=== PATIENT | male | born 1935 | race Caucasian/White ===

== ENCOUNTER → 2018-11-17 08:31 | Outpatient (BNVA) | payer MEDICARE, OTHER, SELFPAY | PROVIDERS: PCP Family Medicine; Visit Provider Nurse Practitioner Family | DX: I49.5 Sick sinus syndrome (principal); I48.0 Paroxysmal atrial fibrillation; I42.0 Dilated cardiomyopathy; I77.810 Thoracic aortic ectasia; Z45.02 Encounter for adjustment and management of automatic implantable cardiac defibrillator | CPT/HCPCS: 93283; 99203; 99214 ==

== ENCOUNTER → 2020-11-22 13:56 | Outpatient (BNVA) | payer MEDICARE, OTHER, SELFPAY | PROVIDERS: PCP Family Medicine; Referring Provider Family Medicine; Visit Provider Physician Assistant | DX: I49.5 Sick sinus syndrome (principal); I48.0 Paroxysmal atrial fibrillation; Z45.018 Encounter for adjustment and management of other part of cardiac pacemaker | CPT/HCPCS: 93280; 99212 ==

== ENCOUNTER → 2021-11-21 13:16 | Outpatient (BNVA) | payer MEDICARE, OTHER, SELFPAY | PROVIDERS: PCP Family Medicine; Referring Provider Family Medicine; Visit Provider Physician Assistant | DX: I42.0 Dilated cardiomyopathy (principal); Z95.0 Presence of cardiac pacemaker | CPT/HCPCS: 93282 ==

== ENCOUNTER → 2023-12-29 13:29 | Outpatient (BNVA) | payer MEDICARE, OTHER, SELFPAY | PROVIDERS: PCP Family Medicine; Referring Provider Family Medicine; Visit Provider Urology | DX: N47.1 Phimosis (principal); R32 Unspecified urinary incontinence | CPT/HCPCS: 99215 ==

== ENCOUNTER 2024-03-04 08:08 | Day surgery (SDC) | payer MEDICARE, OTHER, SELFPAY ==
[2024-03-04 08:25] VITALS: BP 109/58; PULSE 56; RESP 17; TEMP 36.1; O2SAT 95
--- NOTE | 2024-03-04 08:27 | ANES.PREOP_ITS ---
General Info Date of Service Date Performed: 03/04/24 Height: 6 ft Weight: 87.997 kg Body Mass Index (BMI): 26.3 Surgical Procedure: Operation Date: 03/04/24 09:40 Proposed Procedure Side Surgeon p Circumcision Chintan Garza MD Meds Allergies and Home Medications Allergies Allergy/AdvReac Type Severity Reaction Status Date / Time sulfamethoxazole (From Allergy Severe Other (See Verified 03/04/24 08:46 Sulfamethoxazole-Trimethoprim) Comment) trimethoprim (From Allergy Severe Other (See Verified 03/04/24 08:46 Sulfamethoxazole-Trimethoprim) Comment) ramipril Allergy Unknown Verified 03/04/24 08:46 ropinirole Allergy HALLUCINATI Verified 03/04/24 08:46 ONS sertraline Allergy Unknown Verified 03/04/24 08:46 zolpidem (From Ambien) Allergy Unknown Verified 03/04/24 08:46 Home Medication ?Medication ?Instructions ?Recorded acetaminophen 325 mg capsule 325 mg PO Q6H PRN 11/17/18 (Tylenol) albuterol sulfate 90 mcg/actuation 2 puff inhalation BID PRN 11/17/18 aerosol inhaler (ProAir HFA) calcium carbonate 600 mg-vitamin 1 cap PO DAILY 11/17/18 D3 10 mcg (400 unit) capsule (Calcium 600 with Vitamin D3) dorzolamide 2 % eye drops 1 drp ophthalmic (eye) BID 11/17/18 finasteride 5 mg tablet (Proscar) 5 mg PO DAILY 11/17/18 folic acid 800 mcg tablet 0.8 mg PO DAILY 11/17/18 ibuprofen 800 mg tablet 800 mg PO BID 11/17/18 latanoprost 0.005 % eye drops 1 drp ophthalmic (eye) QPM 11/17/18 omeprazole 20 mg capsule,delayed 20 mg PO DAILY 11/17/18 release vitamin B complex (B 1 tab PO DAILY 11/17/18 Complex-Vitamin B12 tablet) metoprolol succinate 25 mg 12.5 mg PO DAILY 11/22/20 tablet,extended release 24 hr ascorbic acid (vitamin C) 500 mg 500 mg PO DAILY 12/11/23 tablet cyanocobalamin (vitamin B-12) 5,000 mcg PO DAILY 12/11/23 5,000 mcg capsule mirtazapine 15 mg tablet (Remeron) 15 mg PO DAILY 12/11/23 potassium chloride 20 mEq 20 meq PO DAILY 12/11/23 tablet,extended release torsemide 20 mg tablet 20 mg PO DAILY 12/11/23 polyethylene glycol 3350 17 17 g PO PRN 12/29/23 gram/dose oral powder (Miralax) amiodarone 100 mg tablet 100 mg PO HS 01/22/24 ferrous sulfate 325 mg (65 mg 325 mg PO DAILY 01/22/24 iron) tablet Current Visit Medications: Current Medications Generic Name Dose Route Start Last Admin Trade Name Suhas PRN Reason Stop Dose Admin Ringer's Solution 1,000 mls @ 80 mls/hr 03/04/24 06:00 IV 03/04/24 23:59 INFUSION LOLA Cefazolin Sodium/Dextrose 2 gm in 50 mls @ 100 mls/hr 03/04/24 06:00 Ancef Duplex IVPB 03/04/24 23:59 PREOP LOLA IV Miscellaneous Supplies 1 each 03/04/24 06:00 Iv Access IV 03/04/24 23:59 DIRECTED LOLA Sodium Chloride 0 ml 03/04/24 06:00 Normal Saline Flush 10 Ml Syr IV 03/04/24 23:59 PRN PRN Sodium Chloride 0 ml 03/04/24 06:00 Normal Saline 10 Ml Vial IJ 03/04/24 23:59 DIRECTED PRN Sterile Water 0 ml 03/04/24 06:00 Water,Injection,Sterile 10 Ml Vial IJ 03/04/24 23:59 DIRECTED PRN PFSH Active Problems Active Problems: Problem Status Onset Code Phimosis Acute N47.1 Pacemaker Acute Z95.0 Ascending aorta dilatation Chronic I77.810 Dilated cardiomyopathy Chronic I42.0 Paroxysmal atrial fibrillation Chronic I48.0 Sick sinus syndrome Chronic I49.5 Medical History Medical History Osteoarthritis Obesity 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 Laryngeal spasm Enlarged prostate Inflammatory and toxic neuropathy Insomnia Urinary frequency Idiopathic osteoarthritis Glaucoma GERD (gastroesophageal reflux disease) Frequent falls Flank pain Dysuria Dizziness Optic nerve disorder Disorder of knee Depressive disorder Decreased white blood cell count, unspecified Cutaneous lupus erythematosus Constipation Cobalamin deficiency Closed rib fracture Chronic abdominal pain Visual impairment Visual disturbance Tremor Spondylosis Spinal stenosis Snoring Shoulder joint pain Right foot drop Restless legs Pulmonary embolism Peripheral vascular disease Peripheral nerve disease Periodic limb movement disorder Blood in stool BPH (benign prostatic hyperplasia) Vertigo Arthropathy Anemia Surgical History Surgical History History of permanent cardiac pacemaker placement Tobacco Smoking/Tobacco Use Status: Current every day Tobacco Type: cigarettes Alcohol Alcohol Intake: never Substance Use Substance use: Never Substance use type: does not use Vital Signs and Lab Results Vital Signs Most Recent Vital Signs in EMR: Temp Pulse Resp BP Pulse Ox 36.1 C L 56 L 17 109/58 L 95 03/04/24 08:25 03/04/24 08:25 03/04/24 08:25 03/04/24 08:25 03/04/24 08:25 Lab Results Blood Type / Crossmatch: No Data to Display Complete Blood Count: No Data to Display Complete Metabolic Panel: No Data to Display Liver Function Panel: No Data to Display Coagulation Panel: No Data to Display Cardiac Panel: No Data to Display Arterial Blood Gas: No Data to Display Venous Blood Gas: No Data to Display Pancreas Panel: No Data to Display Thyroid Panel: No Data to Display Infectious Disease: No Data to Display Blood Cultures: No Data to Display Toxicology Panel: No Data to Display Anesthesia Assessment and Plan Anesthesia History Personal History: No History of Anesthesia Complications Family History: No Family History of Anesthesia Complications Exercise Tolerance Exercise Tolerance: Metabolic Equivalents>4 Cardiac & Pulmonary Exam Cardiac Exam: Normal S1/S2 Heart Sounds Pulmonary Exam: Clear Bilateral Breath Sounds Implantable Cardiac Device Does patient have a Pacemaker or an ICD?: Yes Device Electrophysiology Scientist:: Peak Rx #2 Reason for Placement:: [facility] Date of Last Device Interrogation:: 09/08/23 Airway Exam Known Difficult Airway: No Mallampati Class: 4 Mouth Opening: Normal (> 3cm) Thyromental Distance: Less than 3 cm Neck Range of Motion: Limited ROM Neck Circumference: Normal Teeth Condition: Removable Dentures/Plates Upper and Removable Dentures/Plates Lower ASA Classification ASA Score: ASA 4 Emergency Case?: No NPO Status NPO Status: NPO Clears >2 hours, Solids >8 hours Anesthesia Plan Resuscitation Status: DNR Modified During Perioperative Period (limited resuscitative efforts would be made if an immediately identifiable cause was identified. ) Resuscitation Modifications: Pt. Requests for Clinical Judgement to be Used Anesthesia Technique: MAC Anesthesia Airway Planned: Natural Airway Monitors Used: Standard Monitors Preoperative Comments:: 88 yo unwell male for palliative circ. He is not interested in additional cardiac intervention. Sig PMHx: ascending Ao dilation (4.7 cm), cardiomyopathy (torsemide), Afib (no anticoagulation, has been encouraged by his color matcher to be on it be he has declined. amiodarone), pacer (dual lead), PE, GERD (omeprazole), depression (Remeron), smoker, ECHO: LVEF 20%, global hypo, moderate - unable to exclude severe . mild to mod MR. EKG LBBB Plan for small amount of sedation as local is placed. He and his are aware of the fact that he is outside of our normal pt population in regards to acuity and illness and they wish to proceed with minimal sedation.
[2024-03-04 09:22] VITALS: BMI 26.3
--- NOTE | 2024-03-04 09:38 | HPE_ITS ---
Date of service: 03/04/24 Time of Service: 09:39 Assessment and Plan Assessment and plan (1) Phimosis: Status: Acute Assessment and plan: For circumcision History of Present Illness Narrative: Chief complaint: Urethral stricture This is an 88-year-old gentleman who is referred by his primary care provider for concerns regarding a urethral stricture. The patient describes difficulty passing his urine. The urine actually causes ballooning up and what the patient describes as his urethra. Over time, the urine will then dribble out and the ballooning will subside. The issue seems worse in the morning compared to later on at night. He does not really have any dysuria. He is legally blind, so he is not able to tell me if he has had gross hematuria. He does have a history of urinary tract infections. I do not have any actual urine cultures, so I am not sure if his infections are culture proven or not. His usual symptom is worsening low back pain. He does not require IV antibiotics when the infections occur. He does not develop fevers or chills. He does have urinary incontinence and wears an average of 3 depends in a 24-hour period. He is currently on Bactrim for a presumed urinary tract infection. He does not recall having had previous urethral catheters, but he has had multiple cardiac procedures, so having had a catheter and is certainly possible. He has not had any urologic surgeries, but did have a kidney biopsy for medical renal disease. Review of Systems Narrative: No fevers or chills Decreased visual acuity. No dysphasia No diabetes or thyroid dysfunction No shortness of breath, cough or hemoptysis A Fib. Cardiomyopathy. No nausea, vomiting, hepatitis, ulcers, jaundice No seizures, strokes or peripheral neuropathy No bleeding disorders or anemia No gout PFSH All Active Problems Phimosis (Acute) Pacemaker (Acute) dual lead [employer] Evera MRI XT [id number] implanted 03/15/2020 at [facility] [place](this is the third PG) Ascending aorta dilatation (Chronic) Ascending aorta 4.7cm Aortic root 4.4cm on echo 2012 Dilated cardiomyopathy (Chronic) Improved EF 45% on echo 2013 Paroxysmal atrial fibrillation (Chronic) Patient with history of GIB requiring transfusion. 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 Laryngeal spasm Enlarged prostate Inflammatory and toxic neuropathy Insomnia Urinary frequency Idiopathic osteoarthritis Glaucoma GERD (gastroesophageal reflux disease) Frequent falls Flank pain Dysuria Dizziness Optic nerve disorder Disorder of knee Depressive disorder Decreased white blood cell count, unspecified Cutaneous lupus erythematosus Constipation Cobalamin deficiency Closed rib fracture Chronic abdominal pain Visual impairment Visual disturbance Tremor Spondylosis Spinal stenosis Snoring Shoulder joint pain Right foot drop Restless legs Pulmonary embolism Peripheral vascular disease Peripheral nerve disease Periodic limb movement disorder Blood in stool BPH (benign prostatic hyperplasia) Vertigo Arthropathy Anemia Surgical History History of permanent cardiac pacemaker placement Social History Smoking/Tobacco Use Status: Current every day Tobacco Type: cigarettes Smoking risk assessment performed?: Yes Alcohol Intake: never Drug use: Never Substance use type: does not use Housing: house Additional Social history: [facility] Meds Allergies and Home Medications Allergies Allergy/AdvReac Type Severity Reaction Status Date / Time sulfamethoxazole (From Allergy Severe Other (See Verified 03/04/24 08:46 Sulfamethoxazole-Trimethoprim) Comment) trimethoprim (From Allergy Severe Other (See Verified 03/04/24 08:46 Sulfamethoxazole-Trimethoprim) Comment) ramipril Allergy Unknown Verified 03/04/24 08:46 ropinirole Allergy HALLUCINATI Verified 03/04/24 08:46 ONS sertraline Allergy Unknown Verified 03/04/24 08:46 zolpidem (From Ambien) Allergy Unknown Verified 03/04/24 08:46 Home Medications ?Medication ?Instructions ?Recorded ?Confirmed ?Type acetaminophen 325 mg capsule 325 mg PO Q6H PRN 11/17/18 03/04/24 History (Tylenol) albuterol sulfate 90 mcg/actuation 2 puff inhalation BID PRN 11/17/18 03/04/24 History aerosol inhaler (ProAir HFA) calcium carbonate 600 mg-vitamin 1 cap PO DAILY 11/17/18 03/04/24 History D3 10 mcg (400 unit) capsule (Calcium 600 with Vitamin D3) dorzolamide 2 % eye drops 1 drp ophthalmic (eye) BID 11/17/18 03/04/24 History finasteride 5 mg tablet (Proscar) 5 mg PO DAILY 11/17/18 03/04/24 History folic acid 800 mcg tablet 0.8 mg PO DAILY 11/17/18 03/04/24 History ibuprofen 800 mg tablet 800 mg PO BID 11/17/18 03/04/24 History latanoprost 0.005 % eye drops 1 drp ophthalmic (eye) QPM 11/17/18 03/04/24 History omeprazole 20 mg capsule,delayed 20 mg PO DAILY 11/17/18 03/04/24 History release vitamin B complex (B 1 tab PO DAILY 11/17/18 03/04/24 History Complex-Vitamin B12 tablet) metoprolol succinate 25 mg 12.5 mg PO DAILY 11/22/20 03/04/24 History tablet,extended release 24 hr ascorbic acid (vitamin C) 500 mg 500 mg PO DAILY 12/11/23 03/04/24 History tablet cyanocobalamin (vitamin B-12) 5,000 mcg PO DAILY 12/11/23 03/04/24 History 5,000 mcg capsule mirtazapine 15 mg tablet (Remeron) 15 mg PO DAILY 12/11/23 03/04/24 History potassium chloride 20 mEq 20 meq PO DAILY 12/11/23 03/04/24 History tablet,extended release torsemide 20 mg tablet 20 mg PO DAILY 12/11/23 03/04/24 History polyethylene glycol 3350 17 17 g PO PRN 12/29/23 03/04/24 History gram/dose oral powder (Miralax) amiodarone 100 mg tablet 100 mg PO HS 01/22/24 03/04/24 History ferrous sulfate 325 mg (65 mg 325 mg PO DAILY 01/22/24 03/04/24 History iron) tablet Exam Const General: cooperative Neck Neck: supple Resp Effort & Inspection: normal respiratory effort Auscultation: clear to auscultation bilaterally Cardio Rate: other Rhythm: abnormal rhythm GI Palpation: soft and no masses Neuro General: patient alert, patient awake and patient oriented x3 Results Last Vital Signs Temp 36.1 C L 03/04/24 08:25 Pulse 56 L 03/04/24 08:25 Resp 17 03/04/24 08:25 BP 109/58 L 03/04/24 08:25 Pulse Ox 95 03/04/24 08:25 Time Spent Time spent with Patient: <40 minutes Time was spent: other
[2024-03-04] MEDS: Lactated Ringers 1,000 ML 80 ML IV (10:10)
[2024-03-04] MEDS: ceFAZolin 2 GM/50 ML BAG IVPB (10:19)
--- NOTE | 2024-03-04 10:38 | W.ANESPOSTOP ---
Postoperative Evaluation Date, Time and Location Date Performed: 03/04/24 Time Performed: 10:38 Patient Location: Day Surgery Unit Vital Signs Most Recent Imported Vital Signs: Most Recent Vital Signs Temp Pulse Resp BP Pulse Ox 36.1 C L 56 L 17 109/58 L 95 03/04/24 08:25 03/04/24 08:25 03/04/24 08:25 03/04/24 08:25 03/04/24 08:25 Pain Score Most Recent Pain Score: Most Recent Pain Score Pain Level 0 03/04/24 08:25 Assessment Mental Status: Awake (Alert & Oriented to Patient Baseline) Airway and Respiratory Function: Patent airway with normal (patient baseline) respiratory exam Cardiovascular Function: Hemodynamically Stable Hydration Status: Adequately Hydrated Nausea & Vomiting: No Nausea or Vomiting Pain: Pain is tolerable per patient Peripheral Nerve Block: Patient did not receive a nerve block
[2024-03-04] MEDS: Bupivacaine 0.5% Pres-Free 30 ML VIAL (10:41)
--- NOTE | 2024-03-04 11:19 | PDOC.DSDIS_ITS ---
Date of service: 03/04/24 Time of Service: 11:19 Discharge Plan Disposition Patient Disposition: Home Discharge Details Reason For Visit: circumcision Attending Provider: Chintan Garza Primary Care Provider: Abel Parra [place] Meds and New Rx's Prescriptions: No Action polyethylene glycol 3350 [Miralax] 17 gram/dose powder 17 g PO PRN acetaminophen [Tylenol] 325 mg capsule 325 mg PO Q6H PRN ibuprofen 800 mg tablet 800 mg PO BID latanoprost 0.005 % drops 1 drp OP QPM dorzolamide 2 % drops 1 drp OP BID omeprazole 20 mg capsule,delayed release(DR/EC) 20 mg PO DAILY albuterol sulfate [ProAir HFA] 90 mcg/actuation HFA aerosol inhaler 2 puff IH BID PRN folic acid 800 mcg tablet 0.8 mg PO DAILY vitamin B complex [B Complex-Vitamin B12] tablet 1 tab PO DAILY calcium carbonate-vitamin D3 [Calcium 600 with Vitamin D3] 600 mg(1,500mg) - 400 unit capsule 1 cap PO DAILY finasteride [Proscar] 5 mg tablet 5 mg PO DAILY metoprolol succinate 25 mg tablet extended release 24 hr 12.5 mg PO DAILY potassium chloride 20 mEq tablet extended release 20 meq PO DAILY mirtazapine [Remeron] 15 mg tablet 15 mg PO DAILY torsemide 20 mg tablet 20 mg PO DAILY cyanocobalamin (vitamin B-12) 5,000 mcg capsule 5,000 mcg PO DAILY ascorbic acid (vitamin C) 500 mg tablet 500 mg PO DAILY amiodarone 100 mg tablet 100 mg PO HS ferrous sulfate 325 mg (65 mg iron) tablet 325 mg PO DAILY Discharge Instructions Additional Instructions: apply xylocaine jelly to penis as needed remove dressing tomorrow AM - get dressing wet before removing - if dressing comes off before tomorrow, do not worry OK to wear Depends OK to bathe/shower Discharge Orders Discharge Orders: Discharge Order (Routine); Ordered 03/04/24 Ordered By: Chintan Garza DS: Diagnosis Discharge Diagnosis (1) Phimosis: Status: Acute
[2024-03-04 11:22] VITALS: BP 109/61; PULSE 60; RESP 15; TEMP 35.9
--- NOTE | 2024-03-04 11:22 | W.PM.OP ---
Date of service: 03/04/24 Time of Service: 11:22 Operative Note Operative Note DATE OF PROCEDURE: 03/04/24 PRE-OP DIAGNOSIS: Phimosis POST-OP DIAGNOSIS: same PROCEDURE: circumcision SURGEON: Chintan Garza ANESTHESIA TYPE: Local By Surgeon and General:No Airway Refer to Anesthesia Record ESTIMATED BLOOD LOSS: 25 PATHOLOGY: none sent COMPLICATIONS: None Patient was transported to: same day Patient's condition: stable Implants: none Indications: This is an 88-year-old gentleman who is referred to us when it was noted that his penile skin would inflate in size whenever he would void. On examination he had a very tight phimosis. He is having underlying irritation and infections. He is agreeable to a circumcision. Findings: Tight phimosis Scarring of the skin on glans once the foreskin was retracted Procedure Description: The patient was given antibiotics and brought to the operating room on 03/04/2020 for. He is placed in the supine position. His genitalia was prepped with Betadine. General anesthesia without intubation was then utilized. A circumferential nerve block was performed on the penis using quarter percent Marcaine. A circumferential incision was made on the outer aspect of the foreskin at approximately the level of the coronal sulcus. The dorsal slit was then performed and we retracted the foreskin from the glans as best as possible. Marked adhesions between the inner aspect of the foreskin and the glans itself were identified. Once the dorsal slit was performed, we were able to make a second circumferential incision on the inner aspect of the foreskin. The redundant foreskin was removed. Any bleeding points were cauterized with bipolar cautery. Once hemostasis was adequate, the edges of the foreskin were then reapproximated using simple interrupted 4-0 chromic sutures. A dorsal penile nerve block was then performed. A Vaseline gauze dressing was applied to the incision site. The patient tolerated this procedure well with no complications.
--- NOTE | 2024-03-04 11:40 | PDOC.DSDIS_ITS ---
Date of service: 03/04/24 Time of Service: 13:51 Discharge Plan Disposition Patient Disposition: Home Discharge Details Reason For Visit: circumcision Attending Provider: Chintan Garza Primary Care Provider: Abel Parra [place] Meds and New Rx's Prescriptions: No Action polyethylene glycol 3350 [Miralax] 17 gram/dose powder 17 g PO PRN lidocaine HCl 2 % jelly in applicator 1 applic topical BID-QID PRN (Reason: pain) Qty: 250 0RF acetaminophen [Tylenol] 325 mg capsule 325 mg PO Q6H PRN ibuprofen 800 mg tablet 800 mg PO BID latanoprost 0.005 % drops 1 drp OP QPM dorzolamide 2 % drops 1 drp OP BID omeprazole 20 mg capsule,delayed release(DR/EC) 20 mg PO DAILY albuterol sulfate [ProAir HFA] 90 mcg/actuation HFA aerosol inhaler 2 puff IH BID PRN folic acid 800 mcg tablet 0.8 mg PO DAILY vitamin B complex [B Complex-Vitamin B12] tablet 1 tab PO DAILY calcium carbonate-vitamin D3 [Calcium 600 with Vitamin D3] 600 mg(1,500mg) - 400 unit capsule 1 cap PO DAILY finasteride [Proscar] 5 mg tablet 5 mg PO DAILY metoprolol succinate 25 mg tablet extended release 24 hr 12.5 mg PO DAILY potassium chloride 20 mEq tablet extended release 20 meq PO DAILY mirtazapine [Remeron] 15 mg tablet 15 mg PO DAILY torsemide 20 mg tablet 20 mg PO DAILY cyanocobalamin (vitamin B-12) 5,000 mcg capsule 5,000 mcg PO DAILY ascorbic acid (vitamin C) 500 mg tablet 500 mg PO DAILY amiodarone 100 mg tablet 100 mg PO HS ferrous sulfate 325 mg (65 mg iron) tablet 325 mg PO DAILY Discharge Instructions Additional Instructions: apply xylocaine jelly to penis as needed remove dressing tomorrow AM - get dressing wet before removing - if dressing comes off before tomorrow, do not worry OK to wear Depends OK to bathe/shower Stand Alone Forms: Anesthesia Discharge Inst., [facility] Post-op Circumcision, Lin Baldwin ([facility]) Referrals: Chintan Garza MD [ [facility] STAFF PHYSICIAN] - Discharge Orders Discharge Orders: Discharge Order (Routine); Ordered 03/04/24 Ordered By: Chintan Garza Discharge Data Discharge Date/Time-TO BE ENTERED AT DEPARTURE: 03/04/24 12:26 DS: Diagnosis Discharge Diagnosis (1) Phimosis: Status: Acute
[2024-03-04 11:52] VITALS: BP 101/58; PULSE 60; RESP 16; TEMP 35.8; O2SAT 93
--- NOTE | 2024-03-04 13:10 | W.ANESPOSTOP ---
Postoperative Evaluation Date, Time and Location Date Performed: 03/04/24 Time Performed: 12:02 Patient Location: Day Surgery Unit Vital Signs Most Recent Imported Vital Signs: Most Recent Vital Signs Temp Pulse Resp BP Pulse Ox 35.8 C L 60 16 101/58 L 93 03/04/24 11:52 03/04/24 11:52 03/04/24 11:52 03/04/24 11:52 03/04/24 11:52 Most Recent Vital Signs Temp Pulse Resp BP Pulse Ox 36.1 C L 56 L 17 109/58 L 95 03/04/24 08:25 03/04/24 08:25 03/04/24 08:25 03/04/24 08:25 03/04/24 08:25 Pain Score Most Recent Pain Score: Most Recent Pain Score Pain Level 0 03/04/24 11:52 Assessment Mental Status: Awake (Alert & Oriented to Patient Baseline) Airway and Respiratory Function: Patent airway with normal (patient baseline) respiratory exam Cardiovascular Function: Hemodynamically Stable Hydration Status: Adequately Hydrated Nausea & Vomiting: No Nausea or Vomiting Pain: Pt. Denies Any Pain Peripheral Nerve Block: Patient did not receive a nerve block
== END 2024-03-04 12:26 | disposition home or self-care (01) ==
PROVIDERS: PCP Family Medicine; Visit Provider Urology
PROC: (CPT 54161; principal; 2024-03-04 09:30)
DX: N47.1 Phimosis (principal); Z95.0 Presence of cardiac pacemaker; I42.0 Dilated cardiomyopathy
CPT/HCPCS: 54161; J0171; J0665; J0690; J2001; J2405; J2704; J3010

== ENCOUNTER → 2024-03-12 08:55 | Outpatient (BNVA) | payer MEDICARE, OTHER, SELFPAY | PROVIDERS: PCP Family Medicine; Referring Provider Family Medicine; Visit Provider Urology | DX: Z48.816 Encounter for surgical aftercare following surgery on the genitourinary system (principal) ==

== ENCOUNTER 2025-02-23 07:51 | Outpatient (CLI) | payer MEDICARE, OTHER, SELFPAY ==
--- NOTE | 2025-02-23 07:45 | RT.EKG_ITS ---
APPROVED REPORT Exam: Resting ECG Reason for Exam: PAF Patient Location: O HR:137 bpm ECG Measurements Heart Rate 137 AXIS OR [id number] P [id number] QRSd 200 QRS -51 QT 479 T 109 QTc 724 Conclusion Excessive artifact Probable atrial ventricular paced rhythm
== END 2025-02-23 07:52 | disposition home or self-care (01) ==
LOC: DI.CARD 07:51
PROVIDERS: PCP Family Medicine; Visit Provider Student in an Organized Health Care Education/Training Program
DX: I49.5 Sick sinus syndrome (principal); I48.0 Paroxysmal atrial fibrillation
CPT/HCPCS: 93010

== ENCOUNTER → 2025-02-23 10:23 | Outpatient (BNVA) | payer MEDICARE, OTHER, SELFPAY | PROVIDERS: PCP Family Medicine; Referring Provider Family Medicine; Visit Provider Student in an Organized Health Care Education/Training Program | DX: I48.0 Paroxysmal atrial fibrillation (principal); I49.5 Sick sinus syndrome; Z45.02 Encounter for adjustment and management of automatic implantable cardiac defibrillator | CPT/HCPCS: 93005; 93282 ==